=== PATIENT | female | born 1955 | race Caucasian/White ===

== ENCOUNTER 2019-05-14 14:34 | Outpatient (CLI) | payer OTHER, SELFPAY ==
--- NOTE | 2019-05-14 | XR_ITS ---
WS: [id number] SHOULDER RIGHT TECHNIQUE: 3 views of the right shoulder CLINICAL INFORMATION: RIGHT SHOULDER PAIN COMPARISON: None. FINDINGS: Normal acromioclavicular joint. Normal glenohumeral joint. Acromion is normal in appearance. Normal g lenoid. No evidence of acute fracture dislocation. Chronic right rib fractures with callus formation. XR/XR shoulder RT min 2V* [id number] IMPRESSION: Normal right shoulder.
== END 2019-05-14 14:35 | disposition home or self-care (01) ==
PROVIDERS: Family Provider Internal Medicine; Visit Provider Internal Medicine
DX: Z76.89 Persons encountering health services in other specified circumstances (principal)

== ENCOUNTER 2020-02-08 07:54 | Outpatient (CLI) | payer OTHER, SELFPAY ==
--- NOTE | 2020-02-08 08:10 | MM_ITS ---
WS: [id number] Bilateral screening digital mammogram, 02/08/2020 Clinical Data: SCREENING Comparison: 11/07/2018, 10/20/2017, 02/18/2016, 08/20/2014, 08/17/2013, 06/28/2012, 05/26/2011, 05/11/2010, , 04/30/2008, 04/27/2007, 04/19/2006. Findings: The breast parenchymal pattern shows fibroglandular tissue No spiculated masses or clustered calcific ations are seen. There are no secondary signs of carcinoma. MM/[place] [id number] Impression: 1. Negative bilateral mammogram unchanged. 2. Recommend annual screening mammograms. BIRADS: 1-Negative FOLLOW UP: 1 Year Follow-up The CAD hot box checker was used.
== END 2020-02-08 07:55 | disposition home or self-care (01) ==
PROVIDERS: PCP Internal Medicine; Visit Provider Internal Medicine
DX: Z12.31 Encounter for screening mammogram for malignant neoplasm of breast (principal)
CPT/HCPCS: 77067

== ENCOUNTER 2021-07-08 11:35 | Outpatient (CLI) | payer OTHER, SELFPAY ==
--- NOTE | 2021-07-08 11:58 | MM_ITS ---
WS: [id number] Bilateral screening 3D tomosynthesis digital mammogram, 07/08/2021 Clinical Data: SCREENING Comparison: 02/08/2020, 11/07/2018, 10/20/2017, 02/18/2016, 08/20/2014, 08/17/2014, 06/28/2012, 05/26/2011, 2013 2010, 05/02/2009, 04/30/2008, 04/27/2007, 04/19/2006. Findings: The breast parenchymal pattern shows fibroglandular tissue No spiculated masses or clustered calcific ations are seen. There are no secondary signs of carcinoma. MM/[place] [id number] Impression: 1. Negative bilateral mammogram unchanged. 2. Recommend annual screening mammograms. BIRADS: 1-Negative FOLLOW UP: 1 Year Follow-up The CAD finished cloth checker was used.
== END 2021-07-08 11:36 | disposition home or self-care (01) ==
LOC: RAD 11:38
PROVIDERS: PCP Internal Medicine; Visit Provider Internal Medicine
DX: Z12.31 Encounter for screening mammogram for malignant neoplasm of breast (principal)
CPT/HCPCS: 77063; 77067

== ENCOUNTER 2022-06-09 07:13 | Outpatient (CLI) | payer MEDICARE, OTHER, SELFPAY ==
--- NOTE | 2022-06-09 07:20 | CT_ITS ---
WS: [id number] CT NECK WITH CONTRAST HISTORY: CERVICAL LYMPHADENOPATHY TECHNIQUE: Contiguous 5 mm axial images are performed through the neck with intravenous contrast. Sag ittal and coronal reformats are also submitted. All CT scans at [facility] use at least one o f these dose optimization techniques: automated exposure control; mA and/or kV adjustment per patient size (includes targeted exams where dose is matched to clinical indication); or iterative reconstruc tion. CONTRAST: CONTRAST: Omnipaque 350; 100 mL IV. DLP: 151.56 mGy.cm COMPARISON: Soft tissue ultrasound 03/02/2022 Nasopharynx, oropharynx, hypopharynx and larynx are unremarkable. No soft tissue masses or abnormal e nhancement. Torus tubarius and fossa of Rosenmuller and parapharyngeal fat are normal. Small bilateral upper cervical chain lymph nodes are identified. Numerous lymph nodes but not signifi cantly enlarged. Normal fatty irwin remain. There is some lymph nodes at level IIa which are very mild ly hypervascular but not enlarged. Abnormal bilateral parotid glands but worse on the RIGHT. There is heterogeneous enhancement througho ut the superficial and deep portions of the parotid glands. The RIGHT parotid gland is slightly great er than the LEFT. No significant overlying cellulitis. Palpable area along the RIGHT face corresponds to a dilated enhancing duct. The parotid duct measures 6.3 mm in diameter. No definite stones are id entified within the duct on this unenhanced study. The LEFT parotid duct is more normal caliber with no stones. Normal size submandibular glands. Normal thyroid gland. Beginning at the thoracic inlet there are enlarged lymph nodes. In the superior mediastinum there is a 1.7 cm lymph node on the LEFT. There are additional hypervascular lymph nodes. Some of these lymph nodes are mildly enlarged and others are smaller size. Subpectoralis small lymph nodes. The visualiz ed lung apices demonstrate significant interstitial thickening with groundglass areas of attenuation and fibrosis. Suspect bilateral paratracheal lymph nodes in the mediastinum. CT/CT neck w con* [id number] IMPRESSION: 1. Heterogeneous mildly enlarged enhancing parotid glands, more significant on the RIGHT than the LEFT. Consistent with parotitis. 2. Dilated heterogeneous enhancing enlarged RIGHT parotid duct. Corresponds to the palpable mass overlying the RIGHT facial bones. These findings are consist ent with a Covid induced parotitis. No stones are identified within the RIGHT p arotid duct. 3. Mildly enlarged hypervascular lymph nodes in the superior mediastinum. Ther e is marked reticular thickening also noted at the lung apices. These changes a ll may be related to pneumonitis from Covid. Consider CT evaluation of the ches t with IV contrast to evaluate for other etiologies and establish a baseline.
[2022-06-09 07:49] LABS: Blood Urea Nitrogen 6 mg/dL (8-23); Glomerular Filtration Rate 100.3 mL/min (90-130)
[2022-06-09] MEDS: iohexol 350 mg/mL 500 mL Btl (per mL) IV (07:58)
== END 2022-06-09 07:14 | disposition home or self-care (01) ==
LOC: RAD 07:15
PROVIDERS: Radiology Diagnostic Radiology; PCP Internal Medicine; Visit Provider Internal Medicine
DX: R59.0 Localized enlarged lymph nodes (principal); K11.20 Sialoadenitis, unspecified
CPT/HCPCS: 70491; 82565; 84520; Q9967

== ENCOUNTER 2022-08-19 13:42 | Outpatient (CLI) | payer MEDICARE, OTHER, SELFPAY ==
--- NOTE | 2022-08-19 14:05 | MR_ITS ---
WS: [id number] MRI NECK with and without CONTRAST. COMPARISON: Neck CT 06/09/2022 Multiplanar, multisequence imaging is performed with and without contrast. Parotid glands were better seen on the CT that was performed on 06/09/2022. Very mildly prominent nodu lar and mildly enhancing parotid glands are identified. Enhancement appears slightly improved but thi s may be due to the MRI technique. Very minimal prominence but slightly improved RIGHT parotid duct. There are small cervical chain lymph nodes. There are additional lymph nodes in the upper mediastinum and lower LEFT cervical chain which are enl arged and mildly hypervascular but better visualized on the prior study. LEFT supraclavicular lymph n ode measures 10 mm. There are additional paratracheal lymph nodes measuring 12 mm, RIGHT and LEFT. Hy pervascular adenopathy was described on the prior CT also. The distribution of these lymph nodes may be related to neoplasm versus response to a Covid 19. Consider additional chest CT imaging for furthe r evaluation of the lungs. MR/MR orbit face neck wo/w* [id number] IMPRESSION: 1. Parotid glands are lobular and very mildly prominent. No increased vascular ity or enhancement. Heterogeneous glands with slight decrease in size of the RI GHT parotid ducts since 06/09/2022. 2. Enlarged mildly hypervascular LEFT supraclavicular, bilateral paratracheal and anterior mediastinal lymph nodes. Recommend follow-up chest CT with IV cont rast to exclude additional etiologies for enlargement nodes other than response to Covid 19.
[2022-08-19] MEDS: gadobenate dimeglumine 20 mL vial IV (14:48)
== END 2022-08-19 13:43 | disposition home or self-care (01) ==
LOC: RAD 13:43
PROVIDERS: PCP Internal Medicine; Visit Provider Specialist
DX: R59.0 Localized enlarged lymph nodes (principal)
CPT/HCPCS: 70543; A9577

== ENCOUNTER → 2023-01-18 08:45 | Outpatient (BNVA) | payer MEDICARE, OTHER, SELFPAY | PROVIDERS: PCP Internal Medicine; Visit Provider Internal Medicine Rheumatology | DX: Z79.899 Other long term (current) drug therapy (principal); M19.90 Unspecified osteoarthritis, unspecified site; R91.8 Other nonspecific abnormal finding of lung field; R06.02 Shortness of breath; M35.00 Sjogren syndrome, unspecified; R59.0 Localized enlarged lymph nodes; M79.7 Fibromyalgia; R76.8 Other specified abnormal immunological findings in serum | CPT/HCPCS: 36415; 80076; 82565; 85025; 86235; 99204 ==

== ENCOUNTER 2023-03-15 09:52 | Outpatient (CLI) | payer MEDICARE, OTHER, SELFPAY ==
--- NOTE | 2023-03-15 10:00 | CT_ITS ---
WS: [id number] CT CHEST TECHNIQUE: Contrast enhanced CT of the chest with coronal and sagittal reformatted images. CLINICAL INFORMATION: R91.8 - Other nonspecific abnormal finding of lung field COMPARISON: MRI 08/19/2022 DLP: 242.[address] scans at [facility] use at least one of these dose optimization techniques: automated e xposure control; mA and/or kV adjustment per patient size (includes targeted exams where dose is matc hed to clinical indication); or iterative reconstruction. FINDINGS: Clustered prominent RIGHT hilar lymph nodes measuring up to 2.8 cm. Prominent AP window, anterior med iastinal and paratracheal lymph nodes similar to the prior MRI. Findings are nonspecific but may be r eactive. Subpleural honeycombing in both lungs more prominent in the lung bases. Recommend correlation for int erstitial lung disease. Recommend pulmonary consultation. Subpleural reticular opacities in both lung s. No focal pneumonia or pleural fluid. No other suspicious findings. Normal caliber thoracic aorta. Normal caliber descending thoracic aorta. Proximal main pulmonary viktoria kelly are patent. No axillary lymphadenopathy. Adrenal glands are normal. Large esophageal hiatal hernia. IMPRESSION: 1. Subpleural honeycombing with reticular opacities in both lungs more prominent in the lung bases. Recommend correlation for UIP and interstitial lung disease. Recommend pulmonary consultation. 2. Conglomerate or prominent clustered RIGHT hilar lymph nodes measuring up to 2.8 cm. Prominent AP window, paratracheal and anterior mediastinal lymph nodes unchanged since the MRI. Findings may be re active but nonspecific. Recommend CT chest follow-up in 3 to 6 months. 3. Large esophageal hiatal hernia. 4. No other acute findings.
[2023-03-15] MEDS: iohexol 350 mg/mL 500 mL Btl (per mL) IV (10:23)
== END 2023-03-15 09:53 | disposition home or self-care (01) ==
LOC: RAD 09:53
PROVIDERS: PCP Internal Medicine; Visit Provider Internal Medicine Rheumatology
DX: R91.8 Other nonspecific abnormal finding of lung field (principal); J98.4 Other disorders of lung; M19.90 Unspecified osteoarthritis, unspecified site
CPT/HCPCS: 71260; 94010; 94729; Q9967

== ENCOUNTER → 2023-06-15 10:18 | Outpatient (BNVA) | payer MEDICARE, OTHER, SELFPAY | PROVIDERS: PCP Internal Medicine; Visit Provider Surgery | DX: K46.9 Unspecified abdominal hernia without obstruction or gangrene (principal); K21.9 Gastro-esophageal reflux disease without esophagitis | CPT/HCPCS: 99204 ==

== ENCOUNTER → 2023-06-16 08:51 | Outpatient (BNVA) | payer MEDICARE, OTHER, SELFPAY | PROVIDERS: PCP Internal Medicine; Referring Provider Internal Medicine Rheumatology; Visit Provider Internal Medicine Pulmonary Disease | DX: J84.112 Idiopathic pulmonary fibrosis (principal); R76.8 Other specified abnormal immunological findings in serum; M35.00 Sjogren syndrome, unspecified; R59.0 Localized enlarged lymph nodes | CPT/HCPCS: 99203; 99204 ==

== ENCOUNTER 2023-06-27 07:57 | Outpatient (CLI) | payer MEDICARE, OTHER, SELFPAY ==
--- NOTE | 2023-06-27 08:00 | CT_ITS ---
WS: [email or web address] Examination: CT chest w con* [id number] Reason for Exam: Follow up Date: June 27, 2023 Comparison: March 15, 2023 DLP: 280.[address] scans at [facility] use at least one of these dose optimization techniques: automated e xposure control; mA and/or kV adjustment per patient size (includes targeted exams where dose is matc hed to clinical indication); or iterative reconstruction. Findings: The heart is not grossly enlarged. There is coronary artery calcification and disease. There is mediastinal and hilar adenopathy again identified. This appears to have increased in size in the interval. A dominant AP window lymph node previously measured 22.8 x 9.5 mm and now measures 22.8 x 11.5 mm. A dominant right hilar node previously measured 30 x 23.5 mm and now measures 34 x 26 mm. There is no pleural effusion again severe bilateral chronic lung disease is identified and appears si milar with the bilateral honeycombing and reticular opacities. This is dominant in the lung bases pre vious concern for UIP and interstitial lung disease has been raised.0 Again the moderate to large sized hiatal hernia is identified. Images beneath the diaphragm appear grossly unchanged. Impression: There is coronary artery calcification and disease. The mediastinal and hilar adenopathy appears slightly more prominent than on the previous study Again the there is subpleural honeycombing with reticular opacities in the lung bases are noted. This is similar to the previous study. I see no pleural effusion or dense area of consolidative change.
[2023-06-27 08:36] LABS: Blood Urea Nitrogen 10 mg/dL (8-23); Glomerular Filtration Rate 83.7 mL/min (90-130)
[2023-06-27] MEDS: iohexol 350 mg/mL 500 mL Btl (per mL) IV (08:41)
== END 2023-06-27 07:58 | disposition home or self-care (01) ==
LOC: RAD 07:57
PROVIDERS: PCP Internal Medicine; Visit Provider Internal Medicine Pulmonary Disease
DX: R59.0 Localized enlarged lymph nodes (principal); I25.10 Atherosclerotic heart disease of native coronary artery without angina pectoris
CPT/HCPCS: 71260; 82565; 84520; Q9967

== ENCOUNTER 2024-06-04 08:27 | Outpatient (CLI) | payer MEDICARE, OTHER, SELFPAY ==
--- NOTE | 2024-06-04 08:31 | MM_ITS ---
WS: [email or web address] BILATERAL SCREENING DIGITAL TOMOSYNTHESIS MAMMOGRAM WITH CAD HISTORY: SCREENING COMPARISON: 07/08/2021, 02/08/2020 Bilateral CC and MLO views with tomosynthesis and synthetic mammography submitted. Computer aided detection analyzed. Breast composition: There are scattered areas of fibroglandular density. No suspicious masses, microcalcifications or architectural distortion. Benign calcifications scattered throughout each breast. Asymmetries are stable. MM/MM scr BI tomosynthesis [id number] IMPRESSION: BI-RADS: 2 - Benign. FOLLOW UP: 1 Year Follow-up
== END 2024-06-04 08:28 | disposition home or self-care (01) ==
LOC: RAD 08:28
PROVIDERS: PCP Family Medicine; Visit Provider Internal Medicine
DX: Z12.31 Encounter for screening mammogram for malignant neoplasm of breast (principal); R92.323 Mammographic fibroglandular density, bilateral breasts; R92.1 Mammographic calcification found on diagnostic imaging of breast; N64.89 Other specified disorders of breast
CPT/HCPCS: 77063; 77067